=== PATIENT | female | born 1990 | race Two or more races ===

== ENCOUNTER 2020-05-11 22:08 | Emergency (ER) | payer OTHER ==
[~2020-05-11] VITALS: Ht 162.6 cm; Wt 80.5 kg
[~2020-05-11 22:08] MED LIST: HYDR25TA84 PO; NAPR375T PO
[2020-05-11 23:42] LABS: BASOPHILS % (AUTO) 0.8 % (0.0-2.0); EOSINOPHILS % (AUTO) 0.7 % (1.0-6.0); HEMATOCRIT 40.1 % (36-46); HEMOGLOBIN 13.4 g/dL (12.0-16.0); LYMPHOCYTES # (AUTO) 2.7 K/uL (1.0-4.8); MEAN CORPUSCULAR HEMOGLOBIN 31.5 pg (26.0-34.0); MEAN CORPUSCULAR HGB CONC 33.5 G/dL (31.0-37.0); MEAN CORPUSCULAR VOLUME 94 fL (80-100); MONOCYTES # (AUTO) 0.6 K/uL (0.1-1.0); MONOCYTES % (AUTO) 4.1 % (2.0-9.0); NEUTROPHILS # (AUTO) 11.5 K/uL (1.8-7.7); NEUTROPHILS % (AUTO) 76.4 % (40.0-70.0); PLATELET COUNT (AUTO) 248 K/uL (150-450); RED BLOOD CELL COUNT(AUTO) 4.26 MIL/uL (4.00-5.20); RED CELL DISTRIBUTION WIDTH 12.6 % (11.5-14.5)
[2020-05-11] MEDS ORDERED: LIDOCAINE/PF 1% 2 ML VIAL IM ONE (23:45)
[2020-05-11] MEDS ORDERED: CefTRIAXone SODIUM 1 GM/VIAL IM ONE (23:45)
[2020-05-11] MEDS ORDERED: DOXYCYCLINE HYCLATE 100 MG TABLET PO ONE (23:45)
[2020-05-11 23:55] LABS: ANION GAP 6 mmol/L (8-16); CALCIUM, TOTAL 8.5 mg/dL (8.8-10.5); CARBON DIOXIDE 28 mmol/L (22-29); CHLORIDE 103 mmol/L (98-107); CREATININE 0.65 mg/dL (0.60-1.30); GLOMERULAR FILTR. RATE CALC > 60 mL/min (>60); GLUCOSE,RANDOM 106 mg/dL (70-110); POTASSIUM 4.2 mmol/L (3.5-5.1); SODIUM SERUM 137 mmol/L (136-145); UREA NITROGEN, BLOOD 11 mg/dL (7-18)
[2020-05-12] MEDS ORDERED: ACETAMINOPHEN 500 MG TABLET PO ONE
[2020-05-12] MEDS ORDERED: KETOROLAC TROMETHAMINE 30 MG/ML VIAL IM ONE
[2020-05-12] MEDS ORDERED: KETOROLAC TROMETHAMINE 30 MG/ML VIAL IVP ONE (00:30)
[2020-05-12] MEDS ORDERED: CefTRIAXone SODIUM 500 MG in DEXTROSE 5%-WATER 50 ML IV ONE (00:30)
[2020-05-12 00:53] LABS: ALANINE AMINOTRANSFERASE 33 U/L (12-78); ALBUMIN 3.5 g/dL (3.4-5.0); ALKALINE PHOSPHATASE 81 U/L (46-116); ASPARTATE AMINOTRANSFERASE 16 U/L (15-37); BILIRUBIN,TOTAL 0.2 mg/dL (0.1-1.0); HCG,QUANTITATIVE < 1 mIU/mL (0-6); LIPASE 81 U/L (73-393); TOTAL PROTEIN, SERUM 7.5 g/dL (6.4-8.2)
[2020-05-12 02:24] LABS: APPEARANCE,URINE CLEAR (CLEAR)
[2020-05-12 02:25] LABS: BILIRUBIN,URINE NEGATIVE (NEGATIVE); GLUCOSE, URINE (UA) NEGATIVE (NEGATIVE); KETONES,URINE NEGATIVE (NEGATIVE); LEUKOCYTE ESTERASE ,URINE NEGATIVE (NEGATIVE); NITRATE,URINE NEGATIVE (NEGATIVE); OCCULT BLOOD,URINE SMALL (NEGATIVE); PROTEIN,URINE NEGATIVE (NEGATIVE); UROBILINOGEN,URINE 0.2 mg/dL (<=1.0)
[2020-05-12 02:38] VITALS: BP 120/70
[2020-05-12 03:00] LABS: BACTERIA,URINE Few /HPF (None Seen); RBC,URINE 0-2 /HPF (0-2); WBC,URINE 0-2 /HPF (0-5)
[2020-05-12 03:01] LABS: SQUAMOUS EPITHELIAL CELL,UR Rare /LPF (None Seen)
== END 2020-05-12 03:36 | disposition home or self-care (01) ==
LOC: EMS 22:08
DX: N89.8 Other specified noninflammatory disorders of vagina (principal); F41.9 Anxiety disorder, unspecified
CPT/HCPCS: 36415; 76817; 80053; 81001; 83690; 84702; 85025; 87210; 87491; 87591; 96365; 96375; 99284; J0696; J1885; J7060

== ENCOUNTER 2021-03-25 03:02 | Emergency (ER) | payer OTHER ==
[~2021-03-25] VITALS: Ht 162.6 cm; Wt 80.0 kg
[2021-03-25 03:49] LABS: COVID AG,FIA SOURCE NASAL SWAB
[2021-03-25] MEDS ORDERED: IBUPROFEN 600 MG TABLET PO ONE (04:30)
[2021-03-25 04:38] VITALS: BP 133/80
== END 2021-03-25 04:39 | disposition home or self-care (01) ==
LOC: EMS 03:04
DX: J02.8 Acute pharyngitis due to other specified organisms (principal); B97.89 Other viral agents as the cause of diseases classified elsewhere; F41.9 Anxiety disorder, unspecified; Z20.822 Contact with and (suspected) exposure to COVID-19; Z79.899 Other long term (current) drug therapy
CPT/HCPCS: 87426; 87430; 99283; U0003

== ENCOUNTER 2024-08-02 06:50 | Emergency (ER) | payer OTHER ==
[~2024-08-02] VITALS: Ht 162.6 cm; Wt 72.7 kg
[2024-08-02 06:56] VITALS: TEMP 97.8
[2024-08-02] MEDS ORDERED: BIRTH CONTROL PO (06:56)
[2024-08-02] MEDS: IBUPROFEN 400 MG TABLET PO ONE (10:18)
[2024-08-02] MEDS: LIDOCAINE 5% TRANSDERMAL PATCH TD ONE (10:18)
[2024-08-02] MEDS: ACETAMINOPHEN 325 MG TABLET PO ONE (10:18)
[2024-08-02] MEDS: DIAZEPAM 5 MG TABLET PO ONE (10:20)
[2024-08-02 12:45] VITALS: BP 123/68; PULSE 73; RESP 16; O2SAT 98
== END 2024-08-02 13:09 | disposition home or self-care (01) ==
LOC: EMS 06:54
DX: M54.50 Low back pain, unspecified (principal); K59.00 Constipation, unspecified; M53.3 Sacrococcygeal disorders, not elsewhere classified; Z79.3 Long term (current) use of hormonal contraceptives; Z90.49 Acquired absence of other specified parts of digestive tract
CPT/HCPCS: 72100; 72220; 99284; Z7502; Z7610